=== PATIENT | male | born 1995 | race Asian ===

== ENCOUNTER 2019-01-02 01:14 | Emergency (ER) | payer OTHER ==
[2019-01-02 01:23] VITALS: BP 121/74; PULSE 84; TEMP 97.8; BMI 26.6
--- NOTE | 2019-01-02 01:30 | PDOC ---
History of Present Illness - General Chief Complaint: Pain, Acute Stated Complaint: RT FT PAIN Time Seen by Provider: 01/02/19 01:22 History Source: Patient Exam Limitations: No Limitations - History of Present Illness Initial Comments: 01/02/19 01:27 HISTORY OF PRESENT ILLNESS: 23-year-old male denies medical history presents emergency department for evaluation of right foot pain starting at 9 AM on . Patient reports he was swimming at an indoor pool when he jumped into the shallow end of the pool he struck the lateral side of his foot on the bottom of this when a pole. The long after the incident patient went to bed and when he woke up he had increased pain in his foot. Patient has been ambulatory on the foot since initial injury but is requesting evaluation at this time. No recent travel or sick contacts. PAST MEDICAL HISTORY: Denies past medical history SURGICAL HISTORY: Denies ALLERGIES: No known drug allergies REVIEW OF SYSTEMS General/Constitutional: Denies fever or chills. Denies weakness, weight change. HEENT: Denies change in vision. Denies ear pain or discharge. Denies sore throat. Cardiovascular: Denies chest pain or shortness of breath. Respiratory: Denies cough, wheezing, or hemoptysis. Gastrointestinal: Denies nausea, vomiting, diarrhea or constipation. Denies rectal bleeding. Genitourinary: Denies dysuria, frequency, or change in urination. Musculoskeletal: see HPI Skin and breasts: Denies rash or easy bruising. Neurologic: Denies headache, vertigo, loss of consciousness, or loss of sensation. Psychiatric: Denies depression or anxiety. Endocrine: Denies increased thirst. Denies abnormal weight change. Hematologic/Lymphatic: Denies anemia, easy bleeding, or history of blood clots. Allergic/Immunologic: Denies hives or skin allergy. Denies latex allergy. PHYSICAL EXAM General Appearance: Well-appearing, appropriately dressed. No apparent distress , no intoxication. Vascular Pulses: Dorsalis-Pedis (R): 2+, Dorsalis-Pedis (L): 2+ Musculoskeletal/Extremities: Normal inspection. Tenderness to palpation over the dorsal aspect of the fifth metatarsal of the right foot. No deformity noted. No palpable crepitus or subcutaneous emphysema present. Full active range of motion against resistance noted. No hematoma, swelling or ecchymosis present Integumentary: Appropriate color, dry, warm. No cyanosis, erythema, jaundice or rash Neurologic: NVI Past History - Past Medical History Allergies/Adverse Reactions: Allergies Allergy/AdvReac Type Severity Reaction Status Date / Time No Known Allergies Allergy Verified 01/02/19 01:23 Home Medications: Ambulatory Orders NK [No Known Home Medication] 01/02/19 - Suicide/Smoking/Psychosocial Hx Smoking History: Current every day smoker Have you smoked in the past 12 months: Yes Number of Cigarettes Smoked Daily: 10 Information on smoking cessation initiated: No Hx Alcohol Use: Yes (occsaional) Drug/Substance Use Hx: Yes (marijuana) *Physical Exam - Vital Signs Last Vital Signs Temp Pulse Resp BP Pulse Ox 97.8 F 84 19 121/74 99 01/02/19 01:14 01/02/19 01:14 01/02/19 01:14 01/02/19 01:14 01/02/19 01:14 Moderate Sedation - Procedure Monitoring Vital Signs: Procedure Monitoring Vital Signs Temperature 97.8 F 01/02/19 01:14 Pulse Rate 84 01/02/19 01:14 Respiratory Rate 19 01/02/19 01:14 Blood Pressure 121/74 01/02/19 01:14 O2 Sat by Pulse Oximetry (%) 99 01/02/19 01:14 ED Treatment Course - RADIOLOGY Radiology Studies Ordered: Category Date Time Status FOOT-RIGHT [RAD] Stat Radiology 01/02/19 01:27 Ordered Medical Decision Making - Medical Decision Making 01/02/19 01:30 A/P: 23-year-old male with right foot pain Fracture versus contusion X-rays of the right foot Patient is refusing analgesics at this time Reassess 01/02/19 01:50 X-rays of the right foot as read by me: No acute fractures or dislocations present. I will discharge the patient home with instructions to rest, ice, compress and elevate. I discussed the physical exam findings, ancillary test results and final diagnoses with the patient. I answered all of the patient's questions. The patient was satisfied with the care received and felt comfortable with the discharge plan and treatment plan. The patient will call their primary care physician within 24 hours to arrange follow-up and will return to the Emergency Department with any new, persistent or worsening symptoms. *DC/Admit/Observation/Transfer Diagnosis at time of Disposition: Contusion of right foot, initial encounter - Discharge Dispostion Disposition: HOME Condition at time of disposition: Fair Decision to Admit order: No - Referrals Referrals: Parker Breen MD [Staff Physician] - - Patient Instructions Additional Instructions: Take Tylenol or Motrin as needed for pain. Follow manufacturers instructions for appropriate dosage. Apply ice for 20 minutes and removed for at least 20 minutes before reapplying the ice. Whenever possible keep your foot elevated. You've been given the number for an orthopedist. If symptoms do not resolve within the next 7 days call the orthopedist for further evaluation. Return to emergency department for discoloration of the foot, numbness or tingling to the foot, worsening pain, or any other concerns. Thank you very much for choosing us to provide your emergent healthcare needs. - Post Discharge Activity
[2019-01-02] MEDS ORDERED: NAPROXEN 500 MG TABLET (FP) PO ONE (01:55)
[2019-01-02] MEDS ORDERED: NAPROXEN 500 MG TABLET (FP) ONE (01:56)
== END 2019-01-02 02:24 | disposition home or self-care (01) ==
LOC: JER 01:14
DX: S90.31XA Contusion of right foot, initial encounter (principal); F17.210 Nicotine dependence, cigarettes, uncomplicated
CPT/HCPCS: 73630-TC-RT-FY; 99281-25